=== PATIENT | male | born 1950 | race African-American/Black ===

== ENCOUNTER 2016-09-03 23:02 | Emergency (ER) | payer MEDICARE, MEDICAID ==
[2016-09-03 23:31] VITALS: BP 136/60
[2016-09-04] MEDS ORDERED: LIDOCAINE 2% INJ (20 MG/ML) 20 ML MDV INJ ONE (00:49)
[2016-09-04] MEDS ORDERED: BUPIVACAINE HCL 0.5 % INJ/PF 30 ML SDV INJ ONE (00:49)
--- NOTE | 2016-09-04 00:52 | ER Document Report ---
ED General - General Chief Complaint: Neck Pain >24hrs old Stated Complaint: NECK PAIN Time Seen by Provider: 09/04/16 00:44 Notes: Patient is a 66-year-old male presents with complaint of pain over the right trapezius muscle. He says he does have a history of arthritis recurrent pains in his neck. He says on he was lifting heavy bricks. On Sunday morning started feeling soreness and pain which is gradually progressed. No numbness or weakness into the right hand. No pain into the chest. No other complaints at this time. He denies any falls or trauma to the neck. TRAVEL OUTSIDE OF THE [place] IN LAST 30 DAYS: No - Related Data Allergies/Adverse Reactions: No Known Allergies Allergy (Verified 02/07/16 12:41) Past Medical History - Social History Smoking Status: Never Smoker Frequency of alcohol use: None Drug Abuse: None Family History: None Patient has suicidal ideation: No Patient has homicidal ideation: No - Past Medical History Cardiac Medical History: Reports: Hx Hypercholesterolemia Denies: Hx Coronary Artery Disease, Hx Heart Attack, Hx Hypertension Pulmonary Medical History: Denies: Hx Asthma, Hx Bronchitis, Hx COPD, Hx Pneumonia Neurological Medical History: Denies: Hx Cerebrovascular Accident, Hx Seizures Endocrine Medical History: Reports: Hx Diabetes Mellitus Type 2 Renal/ Medical History: Denies: Hx Peritoneal Dialysis Musculoskeltal Medical History: Reports Hx Arthritis - "all over" - Immunizations Hx Diphtheria, Pertussis, Tetanus Vaccination: No Review of Systems - Review of Systems Notes: My Normal Review Basic REVIEW OF SYSTEMS: CONSTITUTIONAL : Denies fever, chills, or sweats. Denies recent illness. EENT: Denies eye, ear, throat, or mouth pain or symptoms. Denies nasal or sinus congestion. CARDIOVASCULAR: Denies chest pain. MUSCULOSKELETAL: Right neck pain. SKIN: Denies rash or skin lesions. NEUROLOGICAL: Denies sensory or motor loss. ALL OTHER SYSTEMS REVIEWED AND NEGATIVE. Physical Exam - Vital signs Vitals: Temp Pulse Resp BP Pulse Ox 98.2 F 74 20 136/60 H 100 09/03/16 23:25 09/03/16 23:25 09/03/16 23:25 09/03/16 23:25 09/03/16 23:25 - Notes Notes: General Appearance: Well nourished, alert, cooperative, no acute distress, moderate obvious discomfort. Vitals: reviewed, See vital signs table. Head: no swelling or tenderness to the head Eyes: PERRL, EOMI, Conjuctiva clear Neck: No midline cervical tenderness to palpation. Patient has some pinpoint pain to palpation over the right trapezius muscle with some spasm. Extremities: strength 5/5 in all extremities, good pulses in all extremities, no swelling or tenderness in the extremities, no edema. Normal radial and ulnar pulses in the right upper extremity. Good distal sensation in all fingers. 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 Skin: warm, dry, appropriate color, no rash Neuro: speech clear, oriented x 3, normal affect, responds appropriately to questions. Course - Re-evaluation Re-evalutation: 09/04/16 02:12 Patient has pain to palpation of the trapezius muscles. Initially the right side and an actual spasm of the right trapezius muscle on exam. When I went to give trigger point injections he was started have spasm on the left side. I did perform bilateral trigger point injections over the posterior chest. Trapezius muscles. Also give patient dose of Ultram. He has no pain into his chest. No difficulty breathing. Pain is easily exacerbated with movements of his shoulders. Pain is seems very musculoskeletal on exam. At this time I feel patient safe to be discharged home. I will have him follow-up closely with his primary care doctor. I encouraged him return to ER if he has worsening pain, any pain to his chest, difficulty breathing, or if he feels unwell. Patient agrees with plan and will be discharged home. Dictation of this chart was performed using voice recognition software; therefore, there may be some unintended grammatical errors. - Vital Signs Vital signs: Temp Pulse Resp BP Pulse Ox 98.2 F 74 20 136/60 H 100 09/03/16 23:25 09/03/16 23:25 09/03/16 23:25 09/03/16 23:25 09/03/16 23:25 Procedures - Additional Procedures trigger point injections Notes: 09/04/16 02:14 I mixed 2% lidocaine with 0.5% bupivacaine. I mixed this and the tensor branch with half lidocaine and half ropivacaine. Injected 4 mils over the trigger point over the posterior right trapezius muscle as well as injected at the 4 mL' s over the trigger point over the left posterior trapezius muscle. Before injection area was thoroughly cleaned with alcohol. No complications. Patient tolerated procedure well. Discharge - Discharge Clinical Impression: Trapezius muscle spasm Condition: Good Disposition: HOME, SELF-CARE Instructions: Oral Narcotic Medication ([facility]) Additional Instructions: Please return to the ER immediately if you have worsening pain weakness or numbness into your hands, any chest pain, or if you feel unwell. Do not drive or operate machinery when taking the Ultram as it can make you drowsy and affect your decision making. Follow up with your doctor in 2-3 days for reevaluation. Prescriptions: Tramadol HCl [Ultram 50 mg Tablet] 50 mg PO Q6HP PRN #10 tablet PRN Reason: Referrals: GARRET GARCIA MD [Primary Care Provider] - 09/06/16
[2016-09-04] MEDS ORDERED: TRAMADOL HCL 50 MG TABLET PO ONE (02:03)
== END 2016-09-04 02:20 | disposition home or self-care (01) ==
LOC: ER 23:02
PROC: 3E0T3BZ Introduction of Anesthetic Agent into Peripheral Nerves and Plexi, Percutaneous Approach (ICD-10-PCS; principal; 2016-09-03)
DX: M54.6 Pain in thoracic spine (principal); M54.2 Cervicalgia
CPT/HCPCS: 99283; 64413; J3490; A9270

== ENCOUNTER 2017-10-09 22:43 | Emergency (ER) | payer MEDICARE, MEDICAID ==
[2017-10-09 22:57] VITALS: BP 159/75
== END 2017-10-10 00:15 | disposition left against medical advice (07) ==
LOC: ER 22:43
DX: Z53.21 Procedure and treatment not carried out due to patient leaving prior to being seen by health care provider (principal)